=== PATIENT | female | born 1940 | race Caucasian/White ===

== ENCOUNTER 2021-07-18 04:44 | Day surgery (SDC) | payer OTHER, BC ==
[2021-07-17 15:14] VITALS: BMI 20.9
[2021-07-18 11:24] VITALS: TEMP 97.3
[2021-07-18 11:50] VITALS: PULSE 49
[2021-07-18 12:15] VITALS: BP 130/59
== END 2021-07-18 12:15 | disposition home or self-care (01) ==
LOC: JASU-ENDO 04:44
PROVIDERS: ATTEND Internal Medicine Gastroenterology
PROC: 0DB98ZX Excision of Duodenum, Via Natural or Artificial Opening Endoscopic, Diagnostic (ICD-10-PCS; 2021-07-18)
PROC: 0DB68ZX Excision of Stomach, Via Natural or Artificial Opening Endoscopic, Diagnostic (ICD-10-PCS; 2021-07-18)
PROC: 0DB48ZX Excision of Esophagogastric Junction, Via Natural or Artificial Opening Endoscopic, Diagnostic (ICD-10-PCS; 2021-07-18)
PROC: 0DBM8ZX Excision of Descending Colon, Via Natural or Artificial Opening Endoscopic, Diagnostic (ICD-10-PCS; principal; 2021-07-18 10:00)
DX: Z12.11 Encounter for screening for malignant neoplasm of colon (principal); K92.1 Melena; D64.9 Anemia, unspecified; K63.3 Ulcer of intestine; K64.8 Other hemorrhoids; K21.9 Gastro-esophageal reflux disease without esophagitis; K44.9 Diaphragmatic hernia without obstruction or gangrene; K29.00 Acute gastritis without bleeding
CPT/HCPCS: 88305-TC; 88342-TC

== ENCOUNTER 2023-09-23 08:07 | Observation (INO) | payer OTHER, BC ==
[2023-09-23] MEDS ORDERED: ACETAMINOPHEN 1000 MG/100 ML BAG IVPB ONE (08:59)
[2023-09-23 09:04] VITALS: RESP 18
[2023-09-23] MEDS ORDERED: ACETAMINOPHEN INJECTION 100 ML IVPB ONE (09:32)
[2023-09-23 09:46] LABS: BASO % 0.6 % (0-2.0); EOS % 0.7 % (0-4.5); HEMATOCRIT 38.3 % (32.4-45.2); LYMPH % 11.4 % (8-40); MEAN CELL VOLUME 100.2 fl (80-96); MEAN PLT VOLUME 6.2 fl (7.5-11.1); MONO % 4.1 % (3.8-10.2); NEUT % 83.2 % (42.8-82.8); PLATELET COUNT 372 10^3/uL (134-434); RBC 3.82 M/mm3 (3.60-5.2); WHITE BLOOD COUNT 7.9 K/mm3 (4.0-10.0)
[2023-09-23 09:48] LABS: EPI CELLS 2 /uL (0-25.1); HYALINE CASTS 0 /uL (0-3.1); URINE APPEARANCE CLEAR; URINE BACTERIA 18 /uL (0-1359); URINE BILIRUBIN NEGATIVE (NEGATIVE); URINE COLOR YELLOW; URINE GLUCOSE (UA) NEGATIVE (NEGATIVE); URINE KETONE NEGATIVE (NEGATIVE); URINE LEUK ESTERASE NEGATIVE (NEGATIVE); URINE NITRITE NEGATIVE (NEGATIVE); URINE PROTEIN NEGATIVE (NEGATIVE); URINE RBC 28 /uL (0-23.9); URINE UROBILINOGEN 0.2 mg/dL (0.2-1.0); URINE WBC 5 /uL (0-25.8)
[2023-09-23 10:04] LABS: POTASSIUM 4.3 mmol/L (3.5-5.1)
[2023-09-23 10:06] LABS: ALBUMIN 3.9 g/dl (3.4-5.0); BLOOD UREA NITROGEN 13.4 mg/dL (7-18); CALCIUM 8.8 mg/dL (8.5-10.1)
[2023-09-23 10:07] LABS: INR 0.94 (0.83-1.09); PROTHROMBIN TIME (PATIENT) 10.9 SEC (9.7-13.0)
[2023-09-23 10:09] LABS: ACTIVATED PTT 32.7 SECONDS (25.2-36.5); CREATININE 0.7 mg/dL (0.55-1.3)
[2023-09-23 10:11] LABS: BILIRUBIN,TOTAL 0.6 mg/dL (0.2-1)
[2023-09-23] MEDS ORDERED: ASPIRIN 81 MG CHEWABLE TABLETS PO ONE (10:45)
[2023-09-23] MEDS ORDERED: ASPIRIN 81 MG CHEWABLE TABLETS ONE (11:20)
[2023-09-23 18:47] VITALS: BMI 21.6
[2023-09-23] MEDS ORDERED: ROSUVASTATIN CA 10 MG TABLET PO SCH (22:00)
[2023-09-23] MEDS ORDERED: MONTELUKAST NA 10 MG TABLET PO SCH (22:00)
[2023-09-24 08:02] LABS: HEMATOCRIT 35.8 % (32.4-45.2); HEMOGLOBIN 12.3 GM/dL (10.7-15.3); MCH 34.2 pg (25.7-33.7); MCHC 34.3 g/dl (32.0-36.0); MEAN CELL VOLUME 99.8 fl (80-96); MEAN PLT VOLUME 6.5 fl (7.5-11.1); PLATELET COUNT 347 10^3/uL (134-434); RBC 3.59 M/mm3 (3.60-5.2); RDW 12.8 % (11.6-15.6); WHITE BLOOD COUNT 5.8 K/mm3 (4.0-10.0)
[2023-09-24 08:13] LABS: POTASSIUM 4.3 mmol/L (3.5-5.1)
[2023-09-24 08:17] LABS: CALCIUM 8.5 mg/dL (8.5-10.1)
[2023-09-24 08:18] LABS: BLOOD UREA NITROGEN 11.3 mg/dL (7-18); MAGNESIUM 2.3 mg/dL (1.8-2.4)
[2023-09-24 08:21] LABS: CREATININE 0.7 mg/dL (0.55-1.3)
[2023-09-24] MEDS ORDERED: REGADENOSON 0.4 MG/5 ML PRE-FILLED SYRINGE IVPUSH ONE ×2 (09:04→09:15)
[2023-09-24] MEDS ORDERED: BUDESONIDE/FORMOTEROL FUMARATE 160-4.5 MCG (10.3 GM INHALER) IH SCH (10:00)
[2023-09-24] MEDS ORDERED: LISINOPRIL 5 MG TABLET PO SCH (10:00)
[2023-09-24] MEDS ORDERED: metoPROLOL SUCCINATE 25 MG TAB.SR.24H (FP) PO SCH (10:00)
[2023-09-24] MEDS ORDERED: ASPIRIN 81 MG CHEWABLE TABLETS PO SCH (10:00)
[2023-09-24] MEDS ORDERED: FUROSEMIDE 20 MG TABLET (FP) PO SCH (10:00)
[2023-09-24 11:54] VITALS: BP 134/75; PULSE 56; TEMP 97.6
== END 2023-09-24 15:12 | disposition home or self-care (01) ==
LOC: JER 08:07 → JERBED 10:35 → J4W 17:37
PROVIDERS: ADMIT Internal Medicine; ATTEND Internal Medicine
PROC: 3E033NZ Introduction of Analgesics, Hypnotics, Sedatives into Peripheral Vein, Percutaneous Approach (ICD-10-PCS; principal; 2023-09-23)
PROC: 3E033GC Introduction of Other Therapeutic Substance into Peripheral Vein, Percutaneous Approach (ICD-10-PCS; 2023-09-23)
DX: R07.9 Chest pain, unspecified (principal); I25.10 Atherosclerotic heart disease of native coronary artery without angina pectoris; J45.909 Unspecified asthma, uncomplicated; E78.5 Hyperlipidemia, unspecified; I11.0 Hypertensive heart disease with heart failure; Z95.1 Presence of aortocoronary bypass graft
CPT/HCPCS: 0241U-QW; 36415; 71045-TC-FY; 78452-TC; 80048; 80053; 81003; 82607; 82746; 83735; 83880; 84484; 85025; 85027; 85610; 85730; 87086; 93005; 93010; 93017; 93306-TC; 96374; 96375; 99285-25; A9502; G0378; J2785